=== PATIENT | female | born 1985 | race African-American/Black ===

== ENCOUNTER 2023-03-13 21:12 | Emergency (ER) | payer MEDICAID, OTHER ==
[~2023-03-13] VITALS: Ht 167.6 cm; Wt 56.4 kg
[~2023-03-13 21:12] MED LIST: ALBUTEROL
[2023-03-13 21:33] VITALS: BP 139/88; PULSE 86; RESP 18; TEMP 98.1; O2SAT 100
[2023-03-13 23:04] LABS: CLARITY URINE CLEAR (CLEAR); COLOR URINE YELLOW (YELLOW); GLUCOSE URINE NEGATIVE (NEGATIVE); KETONES URINE NEGATIVE (NEGATIVE); LEUKOCYTE ESTERASE URINE 3+ (NEGATIVE); NITRITE URINE NEGATIVE (NEGATIVE); OCCULT BLOOD URINE NEGATIVE (NEGATIVE); PH URINE 5.5 (4.5-8.0); PROTEIN URINE NEGATIVE (NEGATIVE); SPECIFIC GRAVITY URINE 1.019 (1.005-1.030); UROBILINOGEN URINE 0.2 E.U./dL (0.2-1.0)
[2023-03-13 23:26] LABS: BASOPHILS % 0.3 % (0.0-2.0); HEMATOCRIT. 34.2 % (36.0-48.0); MEAN CORPUSCULAR HEMOGLOBIN 28.4 pg (28.0-32.0); MEAN CORPUSCULAR HGB CONC 32.3 g/dL (31.0-37.0); MEAN CORPUSCULAR VOLUME 88.1 fL (81.0-99.0); MONOCYTES % 7.5 % (2.0-8.0); NEUTROPHILS % 72.2 % (40.0-76.0); PLATELET 530 x1000/uL (130-400); RED BLOOD CELL COUNT 3.88 mill/uL (4.2-5.4); WHITE BLOOD COUNT 13.9 x1000/uL (4.5-11.0)
[2023-03-13 23:33] LABS: INR 0.9; PROTHROMBIN TIME 10.2 sec (9.6-11.0)
[2023-03-13 23:39] LABS: CHLORIDE 107 mEq/L (98-107); INDEX HEMOLYSI 1 (1-3); INDEX ICTERIC 1 (1-4); INDEX LIPEMIC 1 (1-3); POTASSIUM 3.6 mEq/L (3.5-5.1); SODIUM 138 mEq/L (136-145)
[2023-03-13 23:43] LABS: BACTERIA URINE 1+; SQUAMOUS EPITHELIAL CELL URINE FEW /lpf (RARE/1+)
[2023-03-13 23:44] LABS: RBC URINE 0-2 /hpf (0-2); TRICHOMONAS URINE 1+
[2023-03-13 23:45] LABS: WBC URINE 15-25 /hpf (0-2)
[2023-03-13 23:50] LABS: ALANINE AMINOTRANSFERASE 24 IU/L (13-61); ALBUMIN 3.1 g/dL (3.4-5.0); ASPARTATE AMINOTRANSFERASE 16 IU/L (15-37); BILIRUBIN TOTAL 0.1 mg/dL (0.1-1.0); CARBON DIOXIDE 28 mEq/L (21-32); CREATININE 0.8 mg/dL (0.6-1.3); GLUCOSE 91 mg/dL (70-105); PROTEIN TOTAL 7.2 g/dL (6.0-8.3); UREA NITROGEN BLOOD 15 mg/dL (7-21)
[2023-03-14] MEDS ORDERED: POVIDONE-IODINE 10% TOPICAL SOLN 240ML TOP ONE (01:00)
[2023-03-14] MEDS ORDERED: LIDOCAINE HCL 1% 20ML VIAL (Pyxis) INJ INFIL ONE (01:00)
[2023-03-14 01:25] LABS: B-HCG QUANTITATIVE < 1.0 mIU/mL (<3)
[2023-03-14] MEDS ORDERED: KETOROLAC 60MG/2ML VIAL IM ONE (01:30)
[2023-03-14] MEDS ORDERED: SULF1TAB48 MT ×2 (02:15)
[2023-03-14] MEDS ORDERED: AMOX1TAB16 MT ×2 (02:15)
[2023-03-14] MEDS ORDERED: CEFI400C4 PO (02:17)
[2023-03-14] MEDS ORDERED: CLIN-194 MT (02:17)
[2023-03-14] MEDS ORDERED: METR-167 MT (02:39)
== END 2023-03-14 02:57 | disposition home or self-care (01) ==
LOC: ER 21:16
DX: N75.1 Abscess of Bartholin's gland (principal); A59.9 Trichomoniasis, unspecified; I50.9 Heart failure, unspecified; J45.909 Unspecified asthma, uncomplicated; F12.10 Cannabis abuse, uncomplicated; Z88.0 Allergy status to penicillin; Z20.822 Contact with and (suspected) exposure to COVID-19
CPT/HCPCS: 80053; 81003; 84702; 83690; 85025; 85610; 87086; 36415; 99283; 87426; J1885; J3490; C9803; Z7610 ×5